=== PATIENT | female | born 1985 | race Caucasian/White ===

== ENCOUNTER → 2019-08-27 15:37 | Outpatient (CLI) | payer OTHER | END | disposition home or self-care (01) | LOC: D.MRI 15:37 | PROVIDERS: ATTEND Nurse Practitioner Family | DX: M67.432 Ganglion, left wrist (principal) ==

== ENCOUNTER 2019-09-21 06:36 | Day surgery (SDC) | payer MEDICAID ==
[~2019-09-21] VITALS: Ht 167.6 cm; Wt 72.6 kg
[~2019-09-21 06:36] MED LIST: ADIPEX-P37.5 MG PO; BUPROPION HCL200 M1 PO; OMEPRAZOLE40 MG PO; [UNRECOGNIZED DRUG - REMARK] PO
[2019-09-21 06:55] LABS: HEMATOCRIT 39.5 % (36.0-48.0); HEMOGLOBIN 13.3 g/dL (12-16); MCH 30.9 pg (26.0-34.0); MCHC 33.7 g/dL (31.0-37.0); MCV 91.9 fL (80.0-100.0); MEAN PLATELET VOLUME 9.6 fL (7.4-10.4); RBC 4.3 10x6/uL (4.00-5.40); RDW 12.7 % (11.5-14.5); WBC 5.7 10x3/uL (4.8-10.8)
[2019-09-21 08:25] VITALS: BP 117/69; Ht 167.6 cm; Wt 72.6 kg
[2019-09-21] MEDS ORDERED: HYDROCODON-ACE1 EAC7 PO (10:07)
[2019-09-21] MEDS ORDERED: DURICEF500 MG PO (10:08)
--- NOTE | 2019-09-21 11:30 | NUR ---
1115 PAIN LEVEL HAS DECREASED FROM 9 OUT OF 10 TO 6 OUT OF 10 AFTER ELEVATING LEFT ARM AND APPLYING ICE TO SURGICAL AREA. PT REQUESTING PAIN MEDICATION.
--- NOTE | 2019-09-21 12:06 | OP ---
PATIENT NAME: JOHNNIE GALVAN MEDICAL RECORD: [id number] :87 LOCATION:[facility] ADMISSION DATE: SURGEON: CHELSEA PACK DO DATE OF OPERATION: 09/21/2019 PROCEDURE PERFORMED: Left dorsal wrist ganglion cyst excision. PREOPERATIVE DIAGNOSIS: Left wrist dorsal ganglion cyst. POSTOPERATIVE DIAGNOSIS: Left wrist dorsal ganglion cyst. INDICATIONS: Ms. Galvan is a 34-year-old female who has had a left dorsal wrist ganglion cyst for 15 years. Has been bothering her and it got to a point where she was tired with dealing with the pain and affecting her range of motion. She wants something done. An MRI was done that showed it was indeed a ganglion cyst coming off the dorsal wrist capsule. I informed her of the risks including infection, bleeding, damage to nerves and vessels and the high likelihood of recurrence with this. She was aware of that as well as a risk for need for further surgery and signed a consent. SURGEON: Chelsea Pack DO DESCRIPTION OF PROCEDURE: The patient was taken to the operative suite, given a gram of Ancef, given sedation and LMA was placed. The left upper extremity was then prepped and draped in sterile fashion. A timeout was performed and everyone was in agreeance with the correct side, site, patient and procedure. I then began by exsanguinating the left upper extremity with Esmarch. Tourniquet was inflated to 250 mmHg, it was up for 13 minutes. Incision was made over the cyst. Careful dissection was made down to the cyst and the cyst was followed down at stalk to the wrist capsule. It was taken off the capsule and then the capsule was closed with 2-0 Vicryl in a simple fashion. Then, tourniquet was let down and bleeding was coagulated with a bipolar. The skin was then closed with 5-0 Monocryl in an inverted interrupted fashion. Steri-Strips, Adaptic, 4 x 4's, Kerlix, and a Coban was lightly wrapped on the patient's wrist. She was awakened and taken to recovery in stable condition. Blood loss was approximately 20 mL. COMPLICATIONS: None. TRANSINT:[id number] Voice Confirmation ID: [id number] DOCUMENT ID: [id number] CHELSEA PACK DO at 1206 CC: [id number] DICTATION DATE: 09/21/19 1013 PACKAGE CRIMPER: 09/21/19 1112 REG [facility] [address] [id number]
--- NOTE | 2019-09-21 12:18 | NUR ---
1158 IV DC'D. CATHETER TIP INTACT. NO BLEEDING AT SITE. BANDAID APPLIED.
== END 2019-09-21 12:10 | disposition home or self-care (01) ==
LOC: D.OPS 06:36 → D.PAN 08:30 → D.OPS 08:30 → D.PAN 09:00 → D.OPS 09:00
PROVIDERS: Anesthesiology; ATTEND Orthopaedic Surgery
DX: M67.432 Ganglion, left wrist (principal)

== ENCOUNTER → 2019-12-24 13:26 | Outpatient (CLI) | payer OTHER ==
[2019-09-21 08:25] VITALS: BMI 25.8
[~2019-12-24 13:26] MED LIST changes: +DURICEF500 MG PO; +HYDROCODON-ACE1 EAC7 PO
== END | disposition home or self-care (01) ==
LOC: D.CT 13:26
PROVIDERS: ATTEND Nurse Practitioner
DX: R79.1 Abnormal coagulation profile (principal)